=== PATIENT | female | born 1935 | race Caucasian/White ===

== ENCOUNTER 2024-03-07 16:52 | Emergency (ER) | payer OTHER, SELFPAY ==
[2024-03-07 16:56] VITALS: BP 109/96
[2024-03-07 17:00] VITALS: BP 109/73; BP 109/96
[2024-03-07 17:03] VITALS: BMI 30.8
[2024-03-07 17:30] LABS: % Basophils 0.3 % (0-2); % Eosinophils 2.6 % (0-6); % Immature Granulocytes 0.7 % (0-0.5); % Lymphocytes 16.2 % (20.5-51.1); % Monocytes 11.7 % (1.7-9.3); % Neutrophils 68.5 % (42.2-75.2); Absolute Eosinophils 0.2 10^3/uL (0-0.7); Absolute Immature Granulocytes 0.1 10^3/uL (0-0.05); Absolute Lymphocytes 1.2 10^3/uL (1.2-3.4); Absolute Monocytes 0.9 10^3/uL (0.1-0.6); Absolute Neutrophils 5.1 10^3/uL (1.4-6.5); Hematocrit 37.4 % (37.0-47.0); Hemoglobin 11.8 g/dL (12.0-16.0); Mean Corp Hgb Conc. 31.6 g/dL (33.0-37.0); Mean Corpuscular Hgb 29.1 pg (27.0-31.0); Mean Corpuscular Volume 92.3 fL (81.0-99.0); Nucleated Red Blood Cells % 0 %; Platelet Count 338 10^3/uL (130-400); Red Blood Cell Count 4.05 10^6/uL (4.20-5.40); Red Cell Dist. Width 15.9 % (11.5-14.5); White Blood Cell Count 7.4 10^3/uL (4.8-10.8)
[2024-03-07 17:32] LABS: Urine Albumin Negative (Neg - Trace); Urine Bilirubin Negative (Negative); Urine Character Clear (Clear); Urine Color Yellow; Urine Glucose Negative (Negative); Urine Ketone Negative (Negative); Urine Leukocyte Negative (Negative); Urine Nitrite Negative (Negative); Urine Occult Blood Negative (Negative); Urine Specific Gravity 1.015 (<1.030); Urine Urobilinogen Negative (Neg - 1+)
[2024-03-07 17:42] LABS: Lactic Acid 0.8 mmol/L (0.7-2.0)
[2024-03-07 17:44] LABS: ALT (SGPT) 11 U/L (0-35); AST (SGOT) 20 U/L (14-36); Albumin 3.5 g/dl (3.5-5.0); Alkaline Phosphatase 67 U/L (38-126); Blood Urea Nitrogen 11 mg/dl (7-17); Carbon Dioxide 31 mmol/L (22-30); Chloride 102 mmol/L (98-107); Estimated Creatinine Clearance 52 ml/min; Glucose 91 mg/dl (70-99); Potassium 4.3 mmol/L (3.5-5.1); Sodium 138 mmol/L (135-145); Total Bilirubin 0.4 mg/dl (0.2-1.3); Total Protein 6.2 g/dl (6.3-8.2); eGFR > 60.00
--- NOTE | 2024-03-07 17:53 | ED.GENMED ---
History of Present Illness
General
Chief Complaint: Urinary Symptoms
Source: patient and halfway records
Exam Limitations: dementia
Time Seen by Provider: 03/07/24 17:07
Travel History
Have you had any contact with someone who has COVID-19?: Unable to Answer
Do you have any symptoms of coronavirus? Fever > 100 degrees, chills, cough, shortness of breath, sore throat, loss of taste or smell, muscle aches, or headache?: Unable to Answer
History of Present Illness
History of Present Illness:
88-year-old female presents for evaluation of being a little more weak than usual. Patient is currently on antibiotics for UTI and bronchitis. Patient states that she just feels a little lousy but otherwise okay. She denies cough. No vomiting
reported.
Past History
Past History
ED Past Medical History: GERD, HTN, Hypercholesterolemia and Psychiatric (a/d, dementia)
ED Past Surgical History: Cholecystectomy and Gynecological
Patient has exhibited threatening behavior?: No
PSI?: No
Social History
Tobacco: Non-smoker
Alcohol: None
Drug: None
Personal:
Living: with family
Employment: Retired
Family History
Family History: Other (Noncontributory)
Phy Exam
Physical Exam
Physical Exam:
CONSTITUTIONAL Patient alert and oriented to person, place. Well-appearing. Vital signs reviewed.
HEAD atraumatic, normocephalic.
EYES eyelids normal to inspection, \\ Extraocular muscles intact, Conjunctiva normal, Sclera normal.
NECK normal range of motion, Trachea midline, no jugular venous distention.
RESPIRATORY CHEST No respiratory distress noted, Chest expansion equal, Bilateral breath sounds clear.
CARDIOVASCULAR regular rate and rhythm
ABDOMEN No distention.
BACK normal inspection, no obvious deformities
UPPER EXTREMITY range of motion normal, Motor strength normal, no cyanosis, no edema.
LOWER EXTREMITY range of motion normal, Motor strength normal, no cyanosis, no edema.
NEURO Speech normal, No focal motor deficits, Cranial Nerves intact to screening exam.
SKIN skin warm, dry, and normal in color.
Course
Orders/Labs/Results
Orders:
Orders
03/07/24 17:19
Complete Blood Count/With Diff Urgent
Comprehensive Metabolic Panel Urgent
Lactic Acid Q4H
Comment: CANCEL 2nd LACTIC ACID IF 1st LACTIC ACID IS LESS THAN 2
Urinalysis Reflex To Culture Urgent
Date Specimen was Collected: 03/07/24
Time Specimen was Collected: 17:17
Blood Culture Q30M
KRISTA Source: Blood/Venous
Specimen Description:
03/07/24 17:40
CXR2 [CR Chest - 2 Views ] Urgent
Comment:
Reason For Exam: cough
03/07/24 17:45
Blood Culture Q30M
KRISTA Source: Blood/Venous
Specimen Description:
03/07/24 17:47
COVID-19 Antigen Urgent
Source: Nasal Swab
Influenza A+B Rapid Molecular Urgent
KRISTA Source: Nasal Swab
Specimen Description:
03/07/24 17:53
Acetaminophen [Tylenol] 1,000 mg PO NOW STA
03/07/24 21:15
Lactic Acid Q4H
Comment: CANCEL 2nd LACTIC ACID IF 1st LACTIC ACID IS LESS THAN 2
Abnormal Lab Results
03/07/24
17:19
RBC 4.05 L 10^6/uL
(4.20-5.40)
Hgb 11.8 L g/dL
(12.0-16.0)
MCHC 31.6 L g/dL
(33.0-37.0)
RDW 15.9 H %
(11.5-14.5)
Abs Immat Gran (auto) 0.1 H 10^3/uL
(0-0.05)
Absolute Monos (auto) 0.9 H 10^3/uL
(0.1-0.6)
Immature Gran % 0.7 H %
(0-0.5)
Lymphocytes % 16.2 L %
(20.5-51.1)
Monocytes % 11.7 H %
(1.7-9.3)
Carbon Dioxide 31 H mmol/L
(22-30)
Total Protein 6.2 L g/dl
(6.3-8.2)
03/07/24 17:19
03/07/24 17:19
Vital Signs
Initial and Last Documented VS:
Initial Vital Signs
Pulse
74
03/07/24 16:55
Last Documented Vital Signs
Temp Pulse Resp BP Pulse Ox
98.8 F 69 19 122/75 93
03/07/24 17:00 03/07/24 18:30 03/07/24 18:30 03/07/24 18:00 03/07/24 18:30
MDM/Problems Addressed
MDM/Problems Addressed:
Bronchitis, upper respiratory infection
*Radiology
Radiology exam reviewed: all reviewed NAD by ED Provider
*Pulse Oximetry
Patient hypoxic: no
*Restaurant District Manager Interpretation
Rate: normal
Interpretation: normal
Rhythm: sinus
*Critical Care Note
Total Time (30-74mins, 75-104mins- exclusive of procedures): Not Applicable
Data Reviewed
Review of Other/Old Records Reveals: Discharge Summary (Discharge summary from October 2022 reviewed)
Source: patient
Prescriptions/Medications Considered But Not Given:
Considered IV antibiotics with patient appears quite well and white count normal, afebrile, no pneumonia and already on oral antibiotics
Patient Management
Social determinants of health affecting care: Living situation
Escalation/DeEscalation of care consider admission/obs:
Patient already on oral antibiotics. Appears well. Suspect viral source. Urinalysis okay. okay for discharge
ED Attending Note
-
Portions of this chart may have been created with voice recognition software.� Occasional wrong word or��sound alike� substitutions may have occurred due to the inherent limitations of voice recognition software.
Discharge Plan
Departure
Patient Disposition: Home (Routine Discharge)
Date of Disposition: 03/07/24
Time of Disposition: 18:49
Patient with high blood pressure during this ER visit?: No
Discharge Problem:
Bronchitis
Instructions: Bronchitis, Adult ED
Prescriptions:
No Action
famotidine 40 MG tablet
40 mg PO HS
acetaminophen 325 MG tablet
650 mg PO Q4H PRN (Reason: mild pain/fever>100.4)
gabapentin 100 MG capsule
200 mg PO BID
calcium carbonate [Antacid (calcium carbonate)] 1 TABLET tablet,chewable
2 tab PO Q4H PRN (Reason: indigestion)
fexofenadine 60 mg Tablet
60 mg PO BID
ondansetron HCl 4 mg Tablet
4 mg PO Q4H PRN (Reason: nuasea/vomiting)
melatonin 3 mg Tablet
6 mg PO HS
acetaminophen 500 mg Tablet
1,000 mg PO DAILY
levothyroxine 75 mcg Tablet
75 mcg PO DAILY
ciclopirox 8 % Solution
1 ml TOPICAL DAILY
Rx Instructions:
apply to affected nails topically every day shift for fungal infection
magnesium hydroxide [Milk of Magnesia] 400 mg/5 mL Suspension
30 ml PO DAILY PRN (Reason: if no bm x 2 days)
pantoprazole 40 mg Tablet,Delayed Release (Dr/Ec)
40 mg PO DAILY
mirtazapine 30 mg Tablet
30 mg PO HS
Rx Instructions:
TAKEN W/ 7.5MG = 37.5MG
gabapentin 300 mg Capsule
300 mg PO HS
mirtazapine 15 mg Tablet
7.5 mg PO HS
Rx Instructions:
TAKEN W/ 30MG = 37.5MG
calcium carbonate-vitamin D3 [Calcium 600 + D(3)] 600 mg-10 mcg (400 unit) Tablet
1 tab PO DAILY
benzocaine-menthol 15-3.6 mg Lozenge
1 martin MUCOUS MEMBRANE Q2H PRN (Reason: SORE THROAT)
Eliquis 5 mg Tablet
5 mg PO BID Qty: 120 0RF
Rx Instructions:
TAKE 2 TABS (10MG) TWICE A DAY THROUGH EVENING OF SATURDAY 11/11; THEN 1 TAB (5MG) TWICE A DAY STARTING MORNING 11/12.
alprazolam 0.25 MG tablet
0.25 mg PO Q6H PRN (Reason: anxiety) Qty: 15 0RF
alprazolam 0.25 MG tablet
0.25 mg PO BID@0600,1600 Qty: 15 0RF
Referrals:
Lopez Schmitt MD [Family Provider] -
Activity Restrictions/Additional Instructions:
Continue your current medications. Please see your doctor in the next 2 to 3 days for follow-up and reevaluation. Return immediately for worsening symptoms, shortness of breath, changes in mentation, vomiting or any other concerns.
Interventions
Interventions:
*Risk Screen - Suicide Last Done: 03/07/24 17:00
*General Assessment Last Done: 03/07/24 17:00
*Neglect/Abuse Screening Last Done: 03/07/24 17:00
*ED COVID-19 Vaccine History Last Done: 03/07/24 17:00
ED-Female Genitourinary Assessment Last Done: 03/07/24 17:06
Discharge Date and Time
Print Language: CYMRO
[2024-03-07] MEDS: TYLENOL 1000 MG PO (17:58)
[2024-03-07 18:00] VITALS: BP 122/75
[2024-03-07 18:25] LABS: COVID-19 Antigen Negative (Negative)
[2024-03-07 20:00] VITALS: BP 104/65
[2024-03-07] MEDS: POLYTRIM OPHTHALMIC SOLUTION 2 DROP OPHTH (20:30)
== END 2024-03-07 21:01 | disposition home or self-care (01) ==
LOC: EMR 16:52
PROVIDERS: EMERGENCY PHYSICIAN Emergency Medicine; FAMILY PHYSICIAN Internal Medicine
DX: J20.9 Acute bronchitis, unspecified (principal); R53.1 Weakness; N39.0 Urinary tract infection, site not specified; Z11.52 Encounter for screening for COVID-19; I10 Essential (primary) hypertension; K21.9 Gastro-esophageal reflux disease without esophagitis; E78.00 Pure hypercholesterolemia, unspecified; F03.90 Unspecified dementia, unspecified severity, without behavioral disturbance, psychotic disturbance, mood disturbance, and anxiety; F32.A Depression, unspecified; F41.9 Anxiety disorder, unspecified; Z90.49 Acquired absence of other specified parts of digestive tract
CPT/HCPCS: 99283; 71046; 80053; 81003; 83605; 85025; 87040; 87502; 87811